=== PATIENT | male | born 1975 | race Caucasian/White ===

== ENCOUNTER → 2019-03-29 11:01 | Outpatient (BNVA) | payer OTHER, SELFPAY | PROVIDERS: Family Provider Nurse Practitioner; Visit Provider Orthopaedic Surgery | DX: Z98.890 Other specified postprocedural states (principal) | CPT/HCPCS: 73110 ==

== ENCOUNTER → 2019-05-09 11:47 | Outpatient (BNVA) | payer OTHER, SELFPAY | PROVIDERS: Family Provider Nurse Practitioner; Visit Provider Orthopaedic Surgery | DX: Z98.890 Other specified postprocedural states (principal) | CPT/HCPCS: 73110 ==

== ENCOUNTER 2020-06-04 10:21 | Outpatient (CLI) | payer OTHER, SELFPAY | END 2020-06-04 10:22 | disposition home or self-care (01) | LOC: SPT 10:22 | PROVIDERS: Family Provider Nurse Practitioner; Visit Provider Specialist | DX: Z46.89 Encounter for fitting and adjustment of other specified devices (principal); M25.532 Pain in left wrist; M25.512 Pain in left shoulder | CPT/HCPCS: 73030; L3908 ==

== ENCOUNTER → 2020-07-02 12:16 | Outpatient (BNVA) | payer OTHER, SELFPAY | PROVIDERS: Family Provider Nurse Practitioner; Visit Provider Psychiatry & Neurology Neurology | DX: M54.2 Cervicalgia (principal); M25.512 Pain in left shoulder; G56.02 Carpal tunnel syndrome, left upper limb; F17.210 Nicotine dependence, cigarettes, uncomplicated | CPT/HCPCS: 95886; 95908 ==

== ENCOUNTER → 2021-11-02 13:55 | Outpatient (BNVA) | payer OTHER, SELFPAY | PROVIDERS: Family Provider Nurse Practitioner; Visit Provider Orthopaedic Surgery | DX: M77.12 Lateral epicondylitis, left elbow (principal) | CPT/HCPCS: 99202 ==

== ENCOUNTER 2021-11-26 18:05 | Emergency (ER) | payer OTHER, SELFPAY ==
[2021-11-26 18:40] VITALS: BMI 38.5
--- NOTE | 2021-11-26 18:47 | ECG_ITS ---
[facility] Test Date: 2021-11-26 Pat Name: Quan Arreaga Department: Room: Gender: Male Coroner: : 1975 Requested By: Carlton Wright Order Number: [id number] Mendiola MD: Tej Johnson M.D. Measurements Intervals [place] Rate: 90 P: 19 DE: 120 QRS: -32 QRSD: 116 T: 35 QT: 342 QTc: 419 Interpretive Statements SINUS RHYTHM LEFT AXIS DEVIATION [QRS AXIS < -30] PATTERN CONSISTENT WITH PULMONARY DISEASE MODERATE INTRAVENTRICULAR CONDUCTION DELAY [110+ ms QRS DURATION] No previous ECG available for comparison Electronically Signed On 11-28-2021 13:24:12 CDT by Tej Johnson M.D. [id number]
--- NOTE | 2021-11-26 23:17 | CTR_ITS ---
PROCEDURE INFORMATION: Exam: CT Head Without Contrast Exam date and time: 11/27/2021 12:14 AM Age: 46 years old Clinical indication: Dizziness; Prior surgery; Surgery date: 6+ months; Surgery type: Tonsillectomy; Additional info: Dizzy TECHNIQUE: Imaging protocol: Computed tomography of the head without contrast. Radiation optimization: All CT scans at this facility use at least one of these dose optimization techniques: automated exposure control; mA and/or kV adjustment per patient size (includes targeted exams where dose is matched to clinical indication); or iterative reconstruction. COMPARISON: No relevant prior studies available. RADIATION DOSE METRICS: Total DLP (mGy-cm): 1121.78 FINDINGS: Brain: Normal. No hemorrhage. Unremarkable white matter. No mass effect. Cerebral ventricles: No ventriculomegaly. Paranasal sinuses: Mild left sphenoid sinus disease. Mild bilateral ethmoid sinus disease. Mastoid air cells: Visualized mastoid air cells are well aerated. Bones/joints: Unremarkable. No acute fracture. Soft tissues: Unremarkable. CT/CT head wo con* [id number] IMPRESSION: 1. Mild left sphenoid sinus disease. 2. Mild bilateral ethmoid sinus disease. No acute intracranial findings.
[2021-11-26 23:42] VITALS: BP 115/78; BP 120/72; BP 98/75; PULSE 75; PULSE 88; PULSE 94
[2021-11-26 23:44] VITALS: BP 120/72; PULSE 75; RESP 18; O2SAT 95
[2021-11-26 23:44] LABS: Basophils # 0.1 10^3/uL (0.0-0.1); Eosinophils # 0.4 10^3/uL (0.0-0.8); Eosinophils % 4.9 %; Hematocrit 45.8 % (42.0-52.0); Hemoglobin 15.7 g/dL (11.7-16.6); Lymphocytes # 3.8 10^3/uL (0.8-4.8); Lymphocytes % 47.3 %; Mean Corpuscular HGB Conc 34.3 g/dL (30.0-36.0); Mean Corpuscular Hemoglobin 31.7 pg (28.0-34.0); Mean Corpuscular Volume 92.3 fl (80-94); Mean Platelet Volume 10.3 fL (7.4-10.4); Monocytes # 0.9 10^3/uL (0.2-0.9); Monocytes % 11.5 %; Neutrophils # 2.84 10^3/uL (1.8-7.7); Neutrophils % 35.2 %; Nucleated Red Blood Cells % 0 %; Platelet Count 244 10^3/cmm (130-400); Red Blood Count 4.96 10^6/uL (4.1-5.3); Red Cell Distribution Width 11.4 % (12.1-15.1); White Blood Count 8.1 10^3/uL (4.0-10.0)
[2021-11-26] MEDS: sodium chloride 0.9% 1,000 ML 999 ML IV (23:57)
[2021-11-27 00:03] LABS: Alanine Aminotransferase 33 U/L (0-41); Albumin Level 4.2 g/dL (3.5-5.2); Alkaline Phosphatase 98 U/L (40-130); Anion Gap 14.8 (5-19); Aspartate Amino Transferase 23 U/L (0-40); Blood Urea Nitrogen 22 mg/dL (6-20); Calcium 9.7 mg/dL (8.5-10.5); Carbon Dioxide 28 mmol/L (22-29); Chloride 100 mmol/L (98-107); Globulin 3.1 g/dL (1.3-4.6); Glomerular Filtration Rate 80.4 mL/min (90-130); Glucose 97 mg/dL (65-115); Magnesium 2.1 mg/dL (1.7-2.3); Osmolality Calculated 291 mOsm/kg (285-295); Potassium 3.8 mmol/L (3.5-5.1); Sodium 139 mmol/L (136-145); Total Bilirubin 0.3 mg/dL (0.15-1.2); Total Protein 7.3 g/dL (6.6-8.7); Troponin T (5th) Once 6 ng/L (0-15)
[2021-11-27 00:21] LABS: Add Urine Microscopic? NO; Charge for UA Resulting for Rev
[2021-11-27 00:24] LABS: Protein Urine Neg (Negative); Urine Appearance Clear (CLEAR); Urine Color Yellow (Yellow); pH Urine 5 (5-7)
[2021-11-27 00:25] LABS: Bilirubin Urine 1+ (Negative); Blood Urine Neg (Negative); Glucose Urine UA Norm (Normal); Ketones Urine 1+ (Negative); Leukocyte Esterase Urine Negative (Negative); Nitrate Urine Negative (Negative); Urobilinogen Urine 1 mg/dL (Negative)
[2021-11-27] MEDS: sodium chloride 0.9% 1,000 ML 999 ML IV (00:45)
[2021-11-27 01:39] VITALS: BP 118/76; PULSE 74; RESP 20
[2021-11-27 01:48] VITALS: BP 118/66; PULSE 84; RESP 18
--- NOTE | 2021-11-27 05:34 | W.ED.DIZZY ---
HPI - Dizziness General: Chief Complaint: Dizziness Stated Complaint: dizziness Time Seen by Provider: 11/26/21 23:01 History of Present Illness: HPI Narrative: 46-year-old male presenting complaining of a year or so of dizziness and near syncopal type symptoms, especially with change in position is in getting up from sitting or lying. Symptoms are not vertiginous. He feels like he may pass out. He becomes dizzy. states he may get diaphoretic at times. He is lost some weight recently. No fever, no significant shortness of breath, no headache. No focal weakness or changes in sensation that is acute, although the patient does note some decreased sensation that is chronic to his entire left lower extremity. [facility] ED PFSH: Medical History (Updated 11/27/21 @ 01:38 by Dakota Nguyễn DO) Status post proximal row carpectomy of wrist Proximal row carpectomy right wrist and posterior interosseous neurectomy for partial denervation of right wrist DOS:02/07/19 by Family History Other Hypertension Denies family history of Diabetes CAD (coronary artery disease) Clotting disorder Dementia Hyperlipidemia Psychiatric illness Chronic kidney disease (CKD) Suicide Anesthesia complication Bleeding disorder Family history of premature coronary artery disease Lung disease Cancer Stroke Social History Smoking and tobacco status: current every day smoker Second hand smoke exposure: Yes Alcohol intake: never Course Vital Signs: Vital signs: Vital Signs Pulse Rate 84 11/27/21 01:48 Respiratory Rate 18 11/27/21 01:48 Blood Pressure 118/66 11/27/21 01:48 Pulse Oximetry 95 11/26/21 23:44 Oxygen Delivery Me thod 11/26/21 23:44 MDM - Dizziness Medical Decision Making This patient's systolic blood pressure dropped from 1 22-98 sitting to standing. This is positive for orthostasis. He is given 2 L of fluid here. He is feeling somewhat better. CBC is normal. BMP is essentially normal. No elevation in liver enzymes. His troponin is 6. Urine ketones are 1+. He is not acidotic. EKG shows a sinus rhythm with left axis deviation. There is intraventricular conduction delay, but no acute ST changes. Rate is 90. NM interval is normal. Head CT shows mild left sphenoid and bilateral ethmoid sinus disease. No acute intracranial findings. With no clear cause of the orthostasis, patient will be referred to cardiology. Outpatient ultrasound Dopplers of the carotids will be scheduled as well. Lab Data : 11/26/21 23:30 11/26/21 23:[address] 11/26/21 23:17 IMPRESSION: 1. Mild left sphenoid sinus disease. 2. Mild bilateral ethmoid sinus disease. No acute intracranial findings. Laboratory Results WBC 8.1 10^3/uL (4.0-10.0) 11/26/21 23:30 RBC 4.96 10^6/uL (4.1-5.3) 11/26/21 23: Hgb 15.7 g/dL (11.7-16.6) 11/26/21 23:30 Hct 45.8 % (42.0-52.0) 11/26/21 23:30 MCV 92.3 fl (80-94) 11/26/21 23: MCH 31.7 pg (28.0-34.0) 11/26/21 23:30 MCHC 34.3 g/dL (30.0-36.0) 11/26/21 23: RDW 11.4 % (12.1-15.1) L 11/26/21 23: Plt Count 244 10^3/cmm (130-400) 11/26/21 23:30 MPV 10.3 fL (7.4-10.4) 11/26/21 23:30 Neut % (Auto) 35.2 % 11/26/21 23:30 Lymph % (Auto) 47.3 % 11/26/21 23:30 Cannon % (Auto) 11.5 % 11/26/21 23:30 Eos % (Auto) 4.9 % 11/26/21 23:30 Baso % (Auto) 1.0 % 11/26/21 23: Neut # (Auto) 2.84 10^3/uL (1.8-7.7) 11/26/21 23:30 Lymph # (Auto) 3.8 10^3/uL (0.8-4.8) 11/26/21 23:30 Cannon # (Auto) 0.9 10^3/uL (0.2-0.9) 11/26/21 23:30 Eos # (Auto) 0.4 10^3/uL (0.0-0.8) 11/26/21 23:30 Baso # (Auto) 0.1 10^3/uL (0.0-0.1) 11/26/21 23:30 Nucleated RBC % (auto) 0 % 11/26/21 23:30 Nucleated RBCs # 0.0 /100WBC 11/26/21 23:30 Sodium 139 mmol/L (136-145) 11/26/21 23:30 Potassium 3.8 mmol/L (3.5-5.1) 11/26/21 23:30 Chloride 100 mmol/L (98-107) 11/26/21 23:30 Carbon Dioxide 28 mmol/L (22-29) 11/26/21 23:30 Anion Gap 14.8 (5-19) 11/26/21 23:30 BUN 22 mg/dL (6-20) H 11/26/21 23:30 Creatinine 1.0 mg/dL (0.7-1.2) 11/26/21 23:30 GFR Calculation 80.4 mL/min (90-130) L 11/26/21 23:30 Glucose 97 mg/dL (65-115) 11/26/21 23:30 Calculated Osmolality 291 mOsm/kg (285-295) 11/26/21 23:30 Calcium 9.7 mg/dL (8.5-10.5) 11/26/21 23:30 Magnesium 2.1 mg/dL (1.7-2.3) 11/26/21 23:30 Total Bilirubin 0.3 mg/dL (0.15-1.2) 11/26/21 23:30 AST 23 U/L (0-40) 11/26/21 23:30 ALT 33 U/L (0-41) 11/26/21 23:30 Alkaline Phosphatase 98 U/L (40-130) 11/26/21 23:30 Troponin T Gen 5 ng/L 6 ng/L (0-15) 11/26/21 23:30 Total Protein 7.3 g/dL (6.6-8.7) 11/26/21 23:30 Albumin 4.2 g/dL (3.5-5.2) 11/26/21 23:30 Globulin 3.1 g/dL (1.3-4.6) 11/26/21 23:30 Urine Color Yellow (Yellow) 11/27/21 00:15 Urine Appearance Clear (CLEAR) 11/27/21 00:15 Urine pH 5 (5-7) 11/27/21 00:15 Ur Specific [place] 1.030 (1.005-1.030) 11/27/21 00:15 Urine Protein Neg (Negative) 11/27/21 00:15 Urine Glucose (UA) Norm (Normal) 11/27/21 00:15 Urine Ketones 1+ (Negative) H 11/27/21 00:15 Urine Blood Neg (Negative) 11/27/21 00:15 Urine Nitrate Negative (Negative) 11/27/21 00:15 Urine Bilirubin 1+ (Negative) H 11/27/21 00:15 Urine Urobilinogen 1 mg/dL (Negative) H 11/27/21 00:15 Ur Leukocyte Esterase Negative (Negative) 11/27/21 00:15 Discharge Plan Discharge Patient Disposition: Home Clinical Impression: Orthostatic hypotension, Pre-syncope Condition: Stable Prescriptions: No Action (DME) cock up splint See Rx Instructions .Route .MEDSUPPLY Qty: 1 0RF Rx Instructions: As directed lisinopril 40 mg tablet 40 mg PO ONCE aspirin 81 mg tablet,delayed release (DR/EC) 81 mg PO ONCE hydrochlorothiazide 25 mg tablet 25 mg PO QAM cholecalciferol (vitamin D3) 1,000 unit capsule 1,000 unit PO ONCE atorvastatin 20 mg tablet 20 mg PO ONCE omega-3 fatty acids [Fish Oil Concentrate] 1,000 mg capsule 1,000 mg PO DAILY Discharge Orders: Discharge ED (Routine); Ordered 11/27/21 Ordered By: Dakota Nguyễn Referrals: Charline Dominguez FNP [Primary Care Provider] - Patient Instructions: Hypotension (ED), Near Syncope (ED) Activity Restrictions/Additional Instructions: Case management order has been placed for you to follow-up with cardiology. We have also ordered outpatient carotid ultrasound testing on you you should get a call this coming week in regards to both. Make sure you drink plenty of noncaffeinated clear fluids. Return for worsening episodes of dizziness, passing out or near passing out, chest discomfort, etc. despite adequate hydration. Coding Level of Care Code ED Lace Stripper for Miranda Austin
--- NOTE | 2021-11-29 15:27 | DCPLANNER ---
Addendum entered by Barbara Amaro 03/10/22 10:44: [facility] - patient did attend appointment Addendum entered by Barbara Amaro 11/30/21 08:58: Patient has a follow up appointment scheduled for Monday, February 14, 2022 at 1:[address] at [facility]. Clinic will call patient with appointment information. Original Note: merchandise manager had message to schedule a follow up appointment for patient with cardiology. merchandise manager sent patients information to the front office staff at [facility]. Patients information will be printed and reviewed. Clinic will call patient with appointment information. merchandise manager sent patients information to June with [facility], for the authorization process to be started.
== END 2021-11-27 01:45 | disposition home or self-care (01) ==
PROVIDERS: Emergency Provider Emergency Medicine; PCP Nurse Practitioner
DX: I95.1 Orthostatic hypotension (principal); Z79.82 Long term (current) use of aspirin; F17.210 Nicotine dependence, cigarettes, uncomplicated
CPT/HCPCS: 70450; 80053; 81003; 83735; 84484; 85025; 93005; 96360; 96361; 99285; J7030

== ENCOUNTER → 2022-02-28 10:07 | Outpatient (BNVA) | payer OTHER, SELFPAY | PROVIDERS: PCP Nurse Practitioner; Visit Provider Internal Medicine Cardiovascular Disease | DX: I95.1 Orthostatic hypotension (principal); I10 Essential (primary) hypertension; E78.5 Hyperlipidemia, unspecified; F17.210 Nicotine dependence, cigarettes, uncomplicated | CPT/HCPCS: 99204 ==

== ENCOUNTER 2022-04-01 10:52 | Outpatient (CLI) | payer OTHER, SELFPAY ==
--- NOTE | 2022-04-01 11:00 | USCV_ITS ---
Quan Arreaga Age: 46 Gender: M : 1975 Exam Date: 04/01/2022 11:06 Ordering Phys: Yodit Armstrong MD ([email or web address]) Technologist: Exam Location: [facility] [place] Indication: chest pain BP: 140 / 88 HR: 67 Rhythm: Sinus Technical Quality: MEASUREMENTS (Male / Female) Normal Values 2D ECHO LV Diastolic Diameter PLAX 4.5 cm 4.2 - 5.9 / 3.9 - 5.3 cm LV Systolic Diameter PLAX 2.7 cm IVS Diastolic Thickness 1.0 cm 0.6 - 1.0 / 0.6 - 0.9 cm IVS Systolic Thickness 1.6 cm LVPW Diastolic Thickness 1.1 cm 0.6 - 1.0 / 0.6 - 0.9 cm LVPW Systolic Thickness 1.5 cm LVOT Diameter 2.0 cm LV Ejection Fraction 2D Teich 71.0 % LV Ejection Fraction MOD 2C 42.6 % LV Ejection Fraction 2C AL 41.2 % LA Diameter 3.6 cm IVC Diameter 1.2 cm M-MODE Aortic Annulus Diameter 4.1 cm LA Ao Ratio MM 1.0 MV E Point Septal Separation 1.5 cm DOPPLER AV Peak Velocity 114.0 cm/s LVOT Peak Velocity 104.0 cm/s AV Area Cont Eq vti 2.8 cm squared AV Area Cont Eq pk 2.8 cm squared MV Area PHT 5.0 cm squared Mitral E to A Ratio 1.1 MV E' Velocity 39.5 cm/s Mitral E to MV E' Ratio 8.9 Mitral E to LV E' Lateral Ratio 8.1 Mitral E to LV E' Septal Ratio 9.9 TR Peak Velocity 163.7 cm/s TR Peak Gradient 10.7 mmHg TV Peak E Velocity 62.0 cm/s Right Atrial Pressure 3.0 mmHg Pulmonary Artery Systolic Pressu 13.7 mmHg PV Peak Velocity 70.0 cm/s RV Acceleration Time 0.1 s FINDINGS Left Ventricle Normal left ventricular size, systolic function and wall thickness, with no regional wall motion abnormalities. Left ventricular ejection fraction is estimated at 55 %. Normal diastolic function. Right Ventricle Normal right ventricular size and systolic function. RVSP could not be calculated due to incomplete tricuspid regurgitation velocity profile. Right Atrium Normal right atrial size. Left Atrium Normal left atrial size. Mitral Valve Structurally normal mitral valve. No mitral valve stenosis. Trace mitral valve regurgitation. Aortic Valve Structurally normal trileaflet aortic valve. No aortic valve stenosis. No aortic valve regurgitation. Tricuspid Valve Structurally normal tricuspid valve. No tricuspid valve stenosis. Trace tricuspid valve regurgitation. Pulmonic Valve Pulmonic valve not well visualized. Pericardium No pericardial effusion. Aorta Normal size aortic root and proximal ascending aorta. IVC Normal IVC dimension with >50% respiratory change of the inferior vena cava. CONCLUSIONS 1. Normal left ventricular size, systolic function and wall thickness, with no regional wall motion abnormalities. Left ventricular ejection fraction is estimated at 55 %. Normal diastolic function. 2. No significant valvular abnormality. 3. No prior similar studies to compare. Yodit Armstrong MD (Electronically Signed) Final Date: 11 April 2022 22:23 S
[2022-04-01] MEDS: perflutren protein-a microsphr 0.22 mg/mL SDV 3 mL IV (11:37)
== END 2022-04-01 10:53 | disposition home or self-care (01) ==
PROVIDERS: PCP Nurse Practitioner; Visit Provider Internal Medicine Cardiovascular Disease
DX: R06.02 Shortness of breath (principal); R55 Syncope and collapse; R07.9 Chest pain, unspecified
CPT/HCPCS: C8929; Q9956

== ENCOUNTER → 2022-06-15 14:36 | Outpatient (BNVA) | payer OTHER, SELFPAY | PROVIDERS: PCP Nurse Practitioner; Visit Provider Nurse Practitioner Family | DX: I95.1 Orthostatic hypotension (principal); I10 Essential (primary) hypertension; F17.210 Nicotine dependence, cigarettes, uncomplicated; Z79.82 Long term (current) use of aspirin | CPT/HCPCS: 99213 ==

== ENCOUNTER 2022-08-24 15:06 | Outpatient (CLI) | payer OTHER, SELFPAY ==
--- NOTE | 2022-08-24 15:17 | MR_ITS ---
WS: [id number] MRI LEFT SHOULDER HISTORY: L SHOULDER PAIN COMPARISON: Shoulder radiograph 06/04/2020 TECHNIQUE: Multiplanar sequences of the shoulder joint are submitted. Mild AC joint arthritis. Narrowing of the AC joint with mild thickening of the capsule. Small osteoph ytes. No significant subacromial impingement. No os acromion. Biceps tendon noted in the bicipital gr oove. No joint effusion. Humeral head is very slightly high riding. Mild narrowing of the glenohumeral join t. No rotator cuff tear is identified. Very slight increased T2 signal and thickening of the distal i nfraspinatus tendon. The remaining tendons are normal. Degenerative changes within the labrum. There is mild increased signal in the anterior superior labrum. Smudge-like increased T2 signal within the anterosuperior labrum is not seen on sequential imaging. Probably intrasubstance degeneration. MR/MR shoulder LT wo con* [id number] IMPRESSION: 1. Mild AC joint arthritis. 2. Mild distal infraspinatus tendinopathy. 3. Intrasubstance degeneration in the anterior superior labrum. Cannot confirm complete tear at this time.
== END 2022-08-24 15:07 | disposition home or self-care (01) ==
LOC: RAD 15:09
PROVIDERS: PCP Nurse Practitioner; Visit Provider Nurse Practitioner
DX: M19.012 Primary osteoarthritis, left shoulder (principal); M25.712 Osteophyte, left shoulder; M75.82 Other shoulder lesions, left shoulder
CPT/HCPCS: 73221

== ENCOUNTER → 2022-10-26 14:53 | Outpatient (BNVA) | payer OTHER, SELFPAY | PROVIDERS: PCP Nurse Practitioner; Referring Provider Nurse Practitioner; Visit Provider Specialist | DX: M77.8 Other enthesopathies, not elsewhere classified | CPT/HCPCS: 73030; 99214 ==

== ENCOUNTER 2023-01-12 15:22 | Outpatient (CLI) | payer OTHER, SELFPAY ==
--- NOTE | 2023-01-12 | MR_ITS ---
WS: [id number] MRI CERVICAL SPINE NONCONTRAST TECHNIQUE: Sagittal T1, T2 and STIR imaging. Axial T2, gradient, and fiesta imaging. CLINICAL INFORMATION: PAIN COMPARISON: None. FINDINGS: Straightening of the normal cervical lordosis. No high-grade central canal narrowing. Cord signal is normal. C2-C3: Mild facet arthropathy. Spinal canal and foramen are patent. C3-C4: Normal. C4-C5: Mild facet arthropathy. Mild LEFT bony foraminal narrowing. C5-C6: Disc osteophyte complex with endplate ridging. Slight effacement of the ventral thecal sac. Mo derate to severe LEFT bony foraminal narrowing. Mild RIGHT bony foraminal narrowing. Mild facet arthr opathy. C6-C7: Disc osteophyte complex with endplate ridging. Uncovertebral joint hypertrophy. Moderate to se vivi LEFT bony foraminal narrowing. Mild RIGHT bony foraminal narrowing. C7-T1: Mild LEFT bony foraminal narrowing. Spinal canal and RIGHT foramen are patent. Visualized brain stem structures: Normal. Prevertebral soft tissues: Normal. IMPRESSION: 1. Straightening of the normal cervical lordosis. Cord signal is normal. 2. Moderate to severe LEFT C5-C6 and C6-C7 bony foraminal narrowing. 3. Mild disc bulge and osteophytic ridging at C5-C6 and C6-C7.
== END 2023-01-12 15:23 | disposition home or self-care (01) ==
PROVIDERS: PCP Nurse Practitioner; Visit Provider Nurse Practitioner
DX: M50.222 Other cervical disc displacement at C5-C6 level (principal); M50.223 Other cervical disc displacement at C6-C7 level
CPT/HCPCS: 72141

== ENCOUNTER → 2023-01-30 14:33 | Outpatient (BNVA) | payer OTHER, SELFPAY | PROVIDERS: PCP Nurse Practitioner; Referring Provider Nurse Practitioner; Visit Provider Surgery | DX: Z12.11 Encounter for screening for malignant neoplasm of colon (principal) | CPT/HCPCS: 99202 ==

== ENCOUNTER → 2023-04-06 13:16 | Outpatient (BNVA) | payer OTHER, SELFPAY | PROVIDERS: PCP Nurse Practitioner; Visit Provider Internal Medicine Cardiovascular Disease | DX: E78.5 Hyperlipidemia, unspecified (principal); I10 Essential (primary) hypertension; Z87.891 Personal history of nicotine dependence | CPT/HCPCS: 99213 ==

== ENCOUNTER 2023-04-13 09:31 | Day surgery (SDC) | payer OTHER, SELFPAY ==
[2023-04-13 09:53] VITALS: BP 135/104; PULSE 98; RESP 16; TEMP 36.6; O2SAT 95; BMI 44.9
[2023-04-13] MEDS: sodium chloride 0.9% 1,000 ML 30 ML IV (10:07)
--- NOTE | 2023-04-13 10:10 | ANES.PREANE2 ---
Pre-Anesthetic Assessment Height/Weight: Height 1.88 m Weight 158.757 kg Temp Pulse Resp BP Pulse Ox O2 Del Method 97.8 F 98 16 135/104 95 Room Air 04/13/23 09:53 04/13/23 09:53 04/13/23 09:53 04/13/23 09:53 04/13/23 09:53 04/13/23 09:53 Preop Diagnosis: screening colonoscopy Operation Date: 04/13/23 10:30 Proposed Procedures p 82669 colon G0121 screen colon a risk Z12.11(Not Applicable) - Juancarlos Velez MD Familial anesthetic complications: none Was Beta Gavino taken within 24 hours: N/A Was Clonidine taken within 24 hours: N/A Last intake: Intake Last Liquid Date 04/12/23 Last Liquid Time 20:00 Last Solid Date 04/11/23 Last Solid Time 18:00 Social Tobacco 1 pack(s) per day 20 plus pack years stopped apr 2022 Exam alert, oriented x 3, clear to auscultation bilaterally and regular rate & rhythm Airway Submandibular: within normal limits Cervical ROM: within normal limits and Other (pinched nerve in neck with radiculopathy) Mallampati: Class II Dentition: chipped Comments: Comments: front tooth chipped. History/ROS No significant history except as noted Pulmonary Sleep Apnea and Shortness of Breath Has CPAP uses occ CV/HEM Hypertension None reported Hepatic None reported Metabolic Morbid Obesity Anesthetic Plan ASA status: 3 Anesthesia: Anesthesia Evaluation and MAC Medications/Allergies Home Medications Medication Instructions Recorded Confirmed Last Taken Type omega-3 fatty acids 1,000 mg 1,000 mg PO DAILY 07/02/20 04/13/23 04/12/23 History capsule (Fish Oil Concentrate) aspirin 81 mg tablet,delayed 81 mg PO DAILY 02/28/22 04/13/23 04/12/23 History release atorvastatin 20 mg tablet 20 mg PO DAILY 02/28/22 04/13/23 04/12/23 History cholecalciferol (vitamin D3) 25 1,000 unit PO DAILY 02/28/22 04/13/23 04/12/23 History mcg (1,000 unit) capsule lisinopril 40 mg tablet 40 mg PO DAILY 02/28/22 04/13/23 04/12/23 History amlodipine 5 mg tablet (Norvasc) 5 mg PO DAILY #30 tabs 04/06/23 04/13/23 Unknown Rx Allergies Allergy/AdvReac Type Severity Reaction Status Date / Time No Known Allergies Allergy Verified 04/06/23 13:22 Current Medications Generic Name Dose Route Start Last Admin Trade Name Sandra PRN Reason Stop Dose Admin Sodium Chloride 1,000 mls @ 30 mls/hr 04/13/23 09:45 04/13/23 10:07 Sodium Chloride 0.9% IV 30 mls/hr .Q24H PIPER Administration PFSH Anesthesia Medical History Hypertension Hyperlipidemia Status post proximal row carpectomy of wrist Proximal row carpectomy right wrist and posterior interosseous neurectomy for partial denervation of right wrist DOS:02/07/19 by Surgical History (Updated 01/30/23 @ 14:40 by Charis Harp, CT) S/P tonsillectomy Family History Mother Myocardial infarction Hypertension Father Myocardial infarction Hypertension Hyperlipidemia Brother Myocardial infarction Hypertension Family/Other Stroke Social History (Updated 01/30/23 @ 14:[address]) Smoking and tobacco/nicotine status: former use of tobacco/nicotine Second hand smoke exposure: Yes Alcohol intake: never Substance/Drug Use: never Data Anesthesia Cardiac Studies: Echocardiogram 04/01/22
--- NOTE | 2023-04-13 10:55 | P.HP_ITS ---
Same Day Surgery H&P Indication for Procedure/HPI DATE OF PROCEDURE: April 13, 2023 CHIEF COMPLAINT/INDICATIONFOR SURGICAL PROCEDURE: need for screening colonoscopy PREOP DIAGNOSIS: screening colonoscopy PLANNED PROCEDURE: Operation Date: 04/13/23 10:30 Proposed Procedures p 60028 colon G0121 screen colon a risk Z12.11(Not Applicable) - Juancarlos kamara MD Medications/Allergies* Home Medications Medication Instructions Recorded Confirmed Type omega-3 fatty acids 1,000 mg 1,000 mg PO DAILY 07/02/20 04/13/23 History capsule (Fish Oil Concentrate) aspirin 81 mg tablet,delayed 81 mg PO DAILY 02/28/22 04/13/23 History release atorvastatin 20 mg tablet 20 mg PO DAILY 02/28/22 04/13/23 History cholecalciferol (vitamin D3) 25 1,000 unit PO DAILY 02/28/22 04/13/23 History mcg (1,000 unit) capsule lisinopril 40 mg tablet 40 mg PO DAILY 02/28/22 04/13/23 History Allergies/Adverse Reactions Allergy/AdvReac Type Severity Reaction Status Date / Time No Known Allergies Allergy Verified 04/06/23 13:22 Current Medications: Generic Name Dose Route Start Last Admin Trade Name Freq PRN Reason Stop Dose Admin Sodium Chloride 1,000 mls @ 30 mls/hr 04/13/23 09:45 04/13/23 10:07 Sodium Chloride 0.9% IV 30 mls/hr .Q24H PIPER Administration Pertinent History/Comorbid Conditions* Medical History (Updated 10/29/22 @ 23:15 by Merced Lim MD) Hypertension Hyperlipidemia Status post proximal row carpectomy of wrist Proximal row carpectomy right wrist and posterior interosseous neurectomy for partial denervation of right wrist DOS:02/07/19 by Surgical History (Updated 02/28/22 @ 10:49 by Yodit Armstrong MD) S/P tonsillectomy Family History (Updated 02/28/22 @ 10:25 by Gege Read RN) Hyperlipidemia Father Myocardial infarction Mother Father Brother Hypertension Mother Father Brother Stroke Family/Other Social History Smoking and tobacco/nicotine status: former use of tobacco/nicotine Second hand smoke exposure: Yes Alcohol intake: never Substance/Drug Use: never Pertinent Exam Findings alert, oriented x 3 and clear to auscultation bilaterally Recommendations Surgery/Procedure today Coding Level of Care Code Acute Code for Chg Fwd
[2023-04-13 11:22] VITALS: BP 114/78; PULSE 82; RESP 18; TEMP 36.4; O2SAT 95
[2023-04-13 11:33] VITALS: BP 128/92; PULSE 77; RESP 18; O2SAT 97
[2023-04-13 11:42] VITALS: BP 133/68; PULSE 75; RESP 18; O2SAT 98
--- NOTE | 2023-04-13 15:46 | ANE.PACU2 ---
Inpatient post-anesthesia follow up: Airway intact: Yes Vital signs: Temperature 97.5 F Pulse Rate 75 Respiratory Rate 18 Blood Pressure 133/68 Pulse Oximetry 98 Oxygen Delivery Me thod Room Air Oxygen Flow Rate Fraction of Inspir ed Oxygen Hydration adequate: Yes Nausea and vomiting: No Pain level: 2 Mental status: Baseline
== END 2023-04-13 11:55 | disposition home or self-care (01) ==
PROVIDERS: PCP Nurse Practitioner; Visit Provider Surgery
PROC: 0DJD8ZZ Inspection of Lower Intestinal Tract, Via Natural or Artificial Opening Endoscopic (ICD-10-PCS; CPT 45378; principal; 2023-04-13 10:30)
DX: Z12.11 Encounter for screening for malignant neoplasm of colon (principal); Z79.82 Long term (current) use of aspirin; E78.5 Hyperlipidemia, unspecified; I10 Essential (primary) hypertension; Z87.891 Personal history of nicotine dependence; G47.30 Sleep apnea, unspecified; E66.01 Morbid (severe) obesity due to excess calories; Z68.41 Body mass index [BMI] 40.0-44.9, adult
CPT/HCPCS: 45378; J2704; J7030

== ENCOUNTER → 2024-02-22 15:54 | Outpatient (BNVA) | payer OTHER, SELFPAY | PROVIDERS: PCP Nurse Practitioner; Referring Provider Nurse Practitioner; Visit Provider Specialist | DX: G56.03 Carpal tunnel syndrome, bilateral upper limbs (principal) | CPT/HCPCS: 95910 ==

== ENCOUNTER → 2024-04-04 10:00 | Outpatient (BNVA) | payer OTHER, SELFPAY | PROVIDERS: PCP Nurse Practitioner; Visit Provider Nurse Practitioner Family | DX: E78.5 Hyperlipidemia, unspecified (principal); I10 Essential (primary) hypertension; Z87.891 Personal history of nicotine dependence | CPT/HCPCS: 99213 ==

== ENCOUNTER → 2024-05-06 16:07 | Outpatient (BNVA) | payer OTHER, SELFPAY | PROVIDERS: PCP Nurse Practitioner; Visit Provider Specialist | DX: Z01.818 Encounter for other preprocedural examination (principal); G56.03 Carpal tunnel syndrome, bilateral upper limbs; G56.02 Carpal tunnel syndrome, left upper limb | CPT/HCPCS: 73130; 99215 ==

== ENCOUNTER 2024-05-28 15:24 | Outpatient (CLI) | payer OTHER, SELFPAY ==
[2024-05-28 15:46] LABS: Bilirubin Urine Negative (Negative); Blood Urine Negative (Negative); Glucose Urine UA Negative (Normal); Ketones Urine Trace (Negative); Leukocyte Esterase Urine Negative (Negative); Nitrate Urine Negative (Negative); Protein Urine Negative (Negative); Specific Gravity, Urine 1.029 (1.005-1.030); Urine Appearance Clear (CLEAR); Urine Color Yellow (Yellow)
[2024-05-28 15:47] LABS: Basophils # 0.1 10^3/uL (0.0-0.1); Basophils % 0.9 %; Eosinophils # 0.3 10^3/uL (0.0-0.8); Eosinophils % 2.7 %; Hematocrit 43.9 % (37-53); Lymphocytes # 3.4 10^3/uL (0.8-4.8); Lymphocytes % 29.9 %; Mean Corpuscular HGB Conc 34.2 g/dL (30-55); Mean Corpuscular Hemoglobin 31.4 pg (27-33); Mean Corpuscular Volume 91.8 fl (82-101); Monocytes % 8.8 %; Neutrophils # 6.49 10^3/uL (1.8-7.7); Neutrophils % 57.4 %; Nucleated Red Blood Cells % 0 %; Platelet Count 256 10^3/cmm (157-399); Red Blood Count 4.78 10^6/uL (3.85-5.65); Red Cell Distribution Width 11.7 % (12.1-15.1)
[2024-05-28 15:51] LABS: Add Urine Microscopic? YES; Bacteria Urine None Seen /hpf; RBC Urine 0-2 /hpf (0-2); Squamous Epithelial Cell Urine 0-5 /hpf (0-5); WBC Urine 0-5 /hpf (0-5)
[2024-05-28 16:14] LABS: Alanine Aminotransferase 24 U/L (0-41); Albumin Level 4.6 g/dL (3.5-5.2); Alkaline Phosphatase 113 U/L (40-130); Anion Gap 15.9 (5-19); Aspartate Amino Transferase 21 U/L (0-40); Blood Urea Nitrogen 19 mg/dL (6-20); Calcium 9.7 mg/dL (8.5-10.5); Carbon Dioxide 23 mmol/L (22-29); Chloride 101 mmol/L (98-107); Globulin 3.3 g/dL (1.3-4.6); Glomerular Filtration Rate 120.4 mL/min (90-130); Glucose 98 mg/dL (65-115); Osmolality Calculated 284 mOsm/kg (285-295); Potassium 3.9 mmol/L (3.5-5.1); Sodium 136 mmol/L (136-145); Total Bilirubin 0.7 mg/dL (0.15-1.2); Total Protein 7.9 g/dL (6.6-8.7)
== END 2024-05-28 15:25 | disposition home or self-care (01) ==
LOC: LAB 15:25
PROVIDERS: PCP Nurse Practitioner; Visit Provider Specialist
DX: Z01.818 Encounter for other preprocedural examination (principal)
CPT/HCPCS: 36415; 80053; 81001; 85025

== ENCOUNTER 2024-06-06 10:53 | Day surgery (SDC) | payer OTHER, SELFPAY ==
[2024-06-06] VITALS (10 sets, daily range): BP systolic 102–134; BP diastolic 68–92; PULSE 55–80; RESP 12–18; TEMP 36.1–36.8; O2SAT 93–100; BMI 41.4
[2024-06-06] MEDS: sodium chloride 0.9% 1,000 ML 30 ML IV (11:27)
[2024-06-06] MEDS: CELEcoxib 200 mg Capsule 400 MG PO (11:28)
[2024-06-06] MEDS: acetaminophen 1,000 MG/100 ML PIGGYBACK 400 MG IV (11:28)
[2024-06-06] MEDS: gabapentin 300 mg Capsule PO (11:29)
--- NOTE | 2024-06-06 12:29 | P.HPUD_ITS ---
Surgery/Procedure H&P Update DATE OF PROCEDURE: June 06, 2024 DATE H&P PERFORMED: 06/04/24 H&P UPDATE INFORMATION: I have reviewed H&P completed within last 30 days, I have examined patient prior to procedure, No changes to prior documentation and H&P is in [facility] date indicated PLANNED PROCEDURE: Operation Date: 06/06/24 12:50 Proposed Procedures p Carpal Tunnel Release(Left) - Merced Lim MD Related Problem List Diagnoses (1) Carpal tunnel syndrome, left upper limb:
--- NOTE | 2024-06-06 13:28 | ANES.PREANE2 ---
Pre-Anesthetic Assessment Height/Weight: Height 1.88 m Weight 146.51 kg Temp Pulse Resp BP Pulse Ox O2 Del Method 97.2 F L 80 18 134/88 98 Room Air 06/06/24 11:21 06/06/24 11:21 06/06/24 11:21 06/06/24 11:21 06/06/24 11:21 06/06/24 11:21 Preop Diagnosis: Left carpal tunnel syndrome Operation Date: 06/06/24 12:50 Proposed Procedures p Carpal Tunnel Release(Left) - Merced Lim MD Familial anesthetic complications: none Was Beta Gavino taken within 24 hours: N/A Was Clonidine taken within 24 hours: N/A Last intake: Intake Last Liquid Date 06/05/24 Last Liquid Time 17:00 Last Solid Date 06/04/24 Last Solid Time 16:00 Social Tobacco and No alcohol 5 cigarettes pack(s) per day 20 pack years Exam alert, oriented x 3, clear to auscultation bilaterally and regular rate & rhythm Airway Cervical ROM: within normal limits Mallampati: Class II Dentition: full Pulmonary Sleep Apnea CV/HEM Hypertension None reported Hepatic None reported GI None reported Metabolic Hyperlipidemia and Morbid Obesity [facility] [place] None reported Neuropsych None reported Anesthetic Plan ASA status: 3 Anesthesia: General Risk of > 500 ml blood loss (7ml/kg in children): No Medications/Allergies Home Medications ?Medication ?Instructions ?Recorded ?Confirmed ?Last Taken ?Type omega-3 fatty acids 1,000 mg 1,000 mg PO DAILY 07/02/20 06/05/24 05/29/24 History capsule (Fish Oil Concentrate) aspirin 81 mg tablet,delayed 81 mg PO DAILY 02/28/22 06/05/24 05/29/24 History release atorvastatin 20 mg tablet 20 mg PO DAILY 02/28/22 06/05/24 06/05/24 History cholecalciferol (vitamin D3) 25 1,000 unit PO DAILY 02/28/22 06/05/24 06/05/24 History mcg (1,000 unit) capsule lisinopril 40 mg tablet 40 mg PO DAILY 02/28/22 06/05/24 06/05/24 History amlodipine 10 mg tablet 10 mg PO DAILY 06/05/24 06/05/24 06/05/24 History Allergies Allergy/AdvReac Type Severity Reaction Status Date / Time No Known Allergies Allergy Verified 06/06/24 11:04 Current Medications Generic Name Dose Route Start Last Admin Trade Name Sandra PRN Reason Stop Dose Admin Sodium Chloride 1,000 mls @ 30 mls/hr 06/06/24 11:15 06/06/24 11:27 Sodium Chloride 0.9% IV 06/07/24 11:14 30 mls/hr .Q24H PIPER Administration PFSH Anesthesia Medical History Hypertension Hyperlipidemia Status post proximal row carpectomy of wrist Proximal row carpectomy right wrist and posterior interosseous neurectomy for partial denervation of right wrist DOS:02/07/19 by Surgical History S/P tonsillectomy Family History Mother Myocardial infarction Hypertension Father Myocardial infarction Hypertension Hyperlipidemia Brother Myocardial infarction Hypertension Family/Other Stroke Social History Smoking and tobacco/nicotine status: current every day tobacco/nicotine user Second hand smoke exposure: Yes Alcohol intake: never Substance/Drug Use: never Data Anesthesia Cardiac Studies: Echocardiogram 04/01/22
[2024-06-06] MEDS: ceFAZolin 2,000 mg SDV 2000 MG IVP (13:36)
[2024-06-06] MEDS: BUPivacaine 0.5% INJ 30 mL XX (14:11)
--- NOTE | 2024-06-06 14:59 | P.OP_ITS ---
Operative Report Date of procedure: June 06, 2024 Pre-op diagnosis: Left carpal tunnel syndrome Post-op diagnosis: Left carpal tunnel syndrome Post-op findings: Severe compression across the carpal canal with purplish discoloration and thickened fibrous tissue Procedure done: Left carpal tunnel release Implants: None Specimens removed/disposition: None Pathology: None Surgeon: Merced Lim MD Building Maintenance Custodian: None Estimated blood loss (mL): 2 Tourniquet time (min): 21 (At 250 mmHg) IV fluids (mL): 500 Urine output (mL): 0 Complications: None Findings: Severe carpal tunnel compression with purplish discoloration of the median nerve and fibrous tissue within the canal Condition: stable Disposition: PACU (Then return to same-day surgery for discharge to home) Brief History: This 48-year-old gentleman presented to the office complaining of symptoms consistent with carpal tunnel syndrome. He had nerve conduction studies which demonstrated severe entrapment of both the right and left median nerves at the wrist with normal ulnar nerves. After discussion in the office, the patient wished to proceed with operative intervention in the form of carpal tunnel release. Risks and complications of the surgery were discussed with him. Consents were signed in the office and questions were answered. The patient was seen preoperatively in the holding area and further questions were answered. Procedure: The patient was brought to the operating theater. The patient had general anesthesia per LMA, which was well-tolerated. The tourniquet was elevated to 250 mmHg for a total tourniquet time of 21 minutes. The patient was also given Ancef 2 g preoperatively. The arm was then prepped and draped with DuraPrep in usual fashion with the arm draped free. A surgical pause was performed. At the time, the surgical pause, we confirmed the site and side of surgery. We also confirmed the patient's identity, appropriate and timely administration of preoperative antibiotics and preoperative surgical markings. An incision was then made along the thenar crease. The incision crossed the wrist joint in a curvilinear fashion. Dissection continued through skin and soft tissues using a scalpel. The palmaris longus was identified along with the transverse carpal ligament. Each of these was released carefully to avoid injury to the median nerve. We were able to dissect gently into the carpal canal which was noted to be quite tight with significant compression across the median nerve. The nerve was visualized and was an hourglass shape. The canal was subsequently palpated to assure there was no bony encroachment upon the canal. There was a quite thickened fibrous tissue within the canal, and this was opened longitudinally as well. The canal was then palpated distally and proximally to assure that my small finger was passed easily without impingement. Finding this to be so, attention was directed to closure. The wound was irrigated with ropivacaine plain. It was then closed with 3-0 nylon in an interrupted mattress fashion. Sterile dressing was then placed consisting of Dermabond, OpSite, fluffed fluffs, sterile soft roll, and an Adi wrap. The tourniquet was released after 21 minutes. There were no complications. There were no specimens. The procedure was well tolerated. Plan is the patient will be discharged home. Related Problem List Diagnoses (1) Carpal tunnel syndrome, left upper limb:
--- NOTE | 2024-06-06 16:10 | ANE.PACU2 ---
Inpatient post-anesthesia follow up: Airway intact: Yes Vital signs: Temperature 97 F Pulse Rate 55 Respiratory Rate 18 Blood Pressure 111/76 Pulse Oximetry 96 Oxygen Delivery Me thod Room Air Oxygen Flow Rate Fraction of Inspir ed Oxygen Hydration adequate: Yes Nausea and vomiting: No Pain level: 1 Mental status: Baseline
== END 2024-06-06 16:10 | disposition home or self-care (01) ==
PROVIDERS: PCP Nurse Practitioner; Visit Provider Specialist
PROC: (CPT 64721; principal; 2024-06-06 12:40)
DX: G56.02 Carpal tunnel syndrome, left upper limb (principal); I10 Essential (primary) hypertension; E78.5 Hyperlipidemia, unspecified; G47.33 Obstructive sleep apnea (adult) (pediatric); F17.200 Nicotine dependence, unspecified, uncomplicated; Z79.82 Long term (current) use of aspirin; E66.01 Morbid (severe) obesity due to excess calories; Z68.41 Body mass index [BMI] 40.0-44.9, adult
CPT/HCPCS: 64721; J0131; J0690; J2250; J2704; J3010; J3490; J7030; J9999

== ENCOUNTER → 2024-06-25 14:16 | Outpatient (BNVA) | payer OTHER, SELFPAY | PROVIDERS: PCP Nurse Practitioner; Visit Provider Nurse Practitioner | DX: Z98.890 Other specified postprocedural states (principal) | CPT/HCPCS: 99024 ==

== ENCOUNTER → 2024-07-15 14:47 | Outpatient (BNVA) | payer OTHER, SELFPAY | PROVIDERS: PCP Nurse Practitioner; Visit Provider Nurse Practitioner | DX: Z98.890 Other specified postprocedural states (principal) | CPT/HCPCS: 99024 ==

== ENCOUNTER → 2024-10-01 12:28 | Outpatient (BNVA) | payer OTHER, SELFPAY | PROVIDERS: PCP Nurse Practitioner; Visit Provider Internal Medicine Cardiovascular Disease | DX: I10 Essential (primary) hypertension (principal); F17.200 Nicotine dependence, unspecified, uncomplicated | CPT/HCPCS: 99214 ==

== ENCOUNTER 2025-02-11 15:39 | Outpatient (CLI) | payer OTHER, SELFPAY ==
--- NOTE | 2025-02-11 15:54 | MR_ITS ---
WS: [id number] MRI HEAD WITH CONTRAST TECHNIQUE: Sagittal T1, T2 axial, T2 axial FLAIR, axial susceptibility weighted imaging, axial diffusion weighted images, and coronal T2 images were obtained. Pre and post-T1 axial and post T1 coronal images. ADC and FSPGR images. CLINICAL INFORMATION: worsening tremors COMPARISON: CT 2021 FINDINGS: No evidence of restricted diffusion to suggest acute ischemia. Mild patchy supratentorial white matter changes. No significant parenchymal volume loss. Normal posterior fossa. Normal vascular flow voids at the skull base. No extra- axial fluid collections. Paranasal sinusitis with fluid in the LEFT sphenoid sinus and ethmoid air cells. Mastoid air cells are well aerated. Normal posterior nasopharynx. No hemosiderin on susceptibility-weighted images. Normal optic chiasm and pituitary infundibulum. No abnormal gadolinium enhancement. MR/MR head wo/w con [id number] IMPRESSION: 1. No evidence of restricted diffusion to suggest acute ischemia. 2. Mild patchy supratentorial white matter changes nonspecific in a patient of this age but can be seen with hypertension, diabetes, and migraine headaches. No significant parenchymal volume loss. 3. No abnormal gadolinium enhancement. 4. No hemosiderin. 5. No other acute findings. 6. Paranasal sinusitis worse in the ethmoid air cells and LEFT sphenoid sinus with fluid and secretions.
[2025-02-11] MEDS: gadobenate dimeglumine 20 mL vial IV (16:42)
== END 2025-02-11 15:40 | disposition home or self-care (01) ==
LOC: RAD 15:40
PROVIDERS: PCP Nurse Practitioner; Visit Provider Nurse Practitioner
DX: Z01.89 Encounter for other specified special examinations (principal); R90.82 White matter disease, unspecified; J01.30 Acute sphenoidal sinusitis, unspecified; I10 Essential (primary) hypertension; E11.9 Type 2 diabetes mellitus without complications; R51.9 Headache, unspecified
CPT/HCPCS: 70553

== ENCOUNTER 2025-03-09 13:36 | Emergency (ER) | payer OTHER, SELFPAY ==
[2025-03-09 13:39] VITALS: BP 155/105; PULSE 74; RESP 18; TEMP 36.6; O2SAT 98; BMI 43.0
--- NOTE | 2025-03-09 13:43 | XRR_ITS ---
PROCEDURE INFORMATION: Exam: XR Left Hand Exam date and time: 03/09/2025 2:14 PM Age: 49 years old Clinical indication: Pain; Finger(s); Prior Surgery; Surgery Date: 6+ months; Surgery Type: LT CARPAL TUNNEL; Additional Info: LACERATION TO LATERAL LT thumb just below level of nailbed after bow accident; TECHNIQUE: Imaging protocol: Radiologic exam of the left hand. Views: 3 or more views. COMPARISON: No relevant prior studies available. FINDINGS: Bones/joints: There is a focal fracture of the distal tuft of the 1st distal phalanx. Phalangeal structures are otherwise intact. Metacarpal structures are intact. Carpal alignment is normal. Joint spaces are well preserved. No intra-articular calcifications are appreciated. Visualized distal radius and ulna are intact. Soft tissues: Soft tissue bandaging is present overlying the thumb. Tissue loss is seen adjacent to the thenar side of the thumb pad. XR/XR hand LT min 3V* [id number] IMPRESSION: There is a focal fracture of the distal tuft of the 1st distal phalanx. Open fracture.
--- OUTSIDE RECORDS SUMMARY | 2025-03-09 13:43 | XMS_ITS | Patient Health Record ---
Author Organization [facility] Address [address] [place] [address] Care Team Providers Care Chefs Name Role Phone AlbertoCharline WALTON Primary Care Provid er Unavailable Francisco Caballero Unavailable [phone] Reason For Referral No Information Medications Medication SIG (Take, Route, Fr equency, Duration) Notes Start Date End Date Status Lisinopril Active Fish Oil Active Vitamin D3 Active Mark Low Dose Activ e Atorvastatin Calcium Active Social History Tobacco Use: Social History Observation Description Date Details (start date - stop date) Current Smoker NA - NA Social History Drugs/Alcohol: Social Info Question Answer Notes Alcohol Screen (Audit-C) Did you have a drink containing alcohol in the past year? Yes How often did you have a drink containing alcohol in the past year? 2 to 3 times a week (3 points) Points 3 Interpretation Negative Drugs Have you used drugs other than those for medical reasons in the past 12 months? No Tobacco Use: Social Info Question Answer Notes xTobacco Use/Smoking Are you a current smoker Additional Findings: Tobacco User e-Cigarette Problems Problem Type SNOMED Code ICD Code Onset Dates Problem Status W/U Status Risk Notes Problem Skin sensation disturbance (98268886) Numbness and tingling in left hand (R20.2) Active confirmed Problem Pain in left arm (142149648) Left arm pain (M79.602) Active confirmed Problem Degeneration of cervical intervertebral disc (25259548) Degeneration of cervical intervertebral disc (M50.30) Active confirmed Problem Displacement of cervical intervertebral disc without myelopathy (64099850) Disc displacement, cervical (M50.20) Active confirmed Plan Of Treatment No Information Insurance Providers Payer Name Payer Address Payer Phone Subscriber Number Group Number Insured Name Patient Relationship to Insured Coverage Start Date Coverage End Date [employer] [address] [place] [phone] [id number] Quan Arreaga Self - patient is the insured Medical (General) History Medical History History ICD Code Chicken Pox Heart Disease Arthritis HBP Surgical History Surgery Date(Month/Year) Right Wrist 03/08
--- NOTE | 2025-03-09 14:30 | W.ED.WOUNDLC ---
HPI - Wound/Laceration General: Chief Complaint: Wound/Laceration Stated Complaint: left thumb injury Time Seen by Provider: 03/09/25 14:17 History of Present Illness: Patient is 49-year-old gentleman with history of hypertension that was deer hunting, pulled his crossbow back, to change attention, and the bow caught his left thumb at the tip, lateral side, causing laceration, loss of skin, loss of fingernail. [facility] This occurred just prior to arrival. Associated symptoms: Denies chills, fever(s), nausea or vomiting Related Data Home Medications ?Medication ?Instructions ?Recorded ?Confirmed omega-3 fatty acids 1,000 mg 1,000 mg PO DAILY 07/02/20 10/01/24 capsule (Fish Oil Concentrate) aspirin 81 mg tablet,delayed 81 mg PO DAILY 02/28/22 10/01/24 release atorvastatin 20 mg tablet 20 mg PO DAILY 02/28/22 10/01/24 cholecalciferol (vitamin D3) 25 1,000 unit PO DAILY 02/28/22 10/01/24 mcg (1,000 unit) capsule lisinopril 40 mg tablet 40 mg PO DAILY 02/28/22 10/01/24 amlodipine 10 mg tablet 10 mg PO DAILY 06/05/24 10/01/24 Previous Rx's ?Medication ?Instructions ?Recorded cephalexin 500 mg capsule 500 mg PO QID 10 days #40 caps 03/09/25 methocarbamol 750 mg tablet 750 mg PO Q8H PRN muscle spasm #30 03/09/25 tabs Allergies Allergy/AdvReac Type Severity Reaction Status Date / Time No Known Allergies Allergy Verified 10/01/24 12:45 Review of Systems General: Reports: 10 or more systems reviewed and unremarkable except in HPI and below Const: Denies: fever(s) or chills Card: Reports: lightheadedness and dyspnea on exertion; Denies: chest pain, palpitations, irregular heart rhythm, swelling of feet/ankles, pre-syncope or leg pain with exertion Resp: Denies: dyspnea or productive cough GI: Denies: abdominal pain, nausea or vomiting Musc: Reports: extremity pain, extremity swelling, joint pain, joint swelling, joint redness, joint stiffness and limited range of motion Neuro: Reports: dizziness PFSH ED PFSH: Medical History (Updated 03/09/25 @ 18:50 by HUNTER Ortiz) Hypertension Hyperlipidemia Status post proximal row carpectomy of wrist Proximal row carpectomy right wrist and posterior interosseous neurectomy for partial denervation of right wrist DOS:02/07/19 by Surgical History S/P carpal tunnel release Date of procedure: June 06, 2024 Pre-op diagnosis: Left carpal tunnel syndrome Procedure done: Left carpal tunnel release Surgeon: Merced Lim MD S/P tonsillectomy Family History Mother Myocardial infarction Hypertension Father Myocardial infarction Hypertension Hyperlipidemia Brother Myocardial infarction Hypertension Family/Other Stroke Social History Smoking and tobacco/nicotine status: current every day tobacco/nicotine user Second hand smoke exposure: Yes Alcohol intake: never Substance/Drug Use: never Physical Exam Const: COMMON NORMALS: no acute distress, average body habitus, patient oriented x3, no limitations, alert and well nourished GENERAL APPEARANCE: cooperative ORIENTATION/CONSCIOUSNESS: Yes awake, Yes oriented to person, Yes oriented to place and Yes oriented to time HENMT: COMMON NORMALS: normocephalic and atraumatic HEAD & SCALP: normocephalic and atraumatic Chest: COMMONS NORMALS: normal inspection of the chest and normal palpation of entire chest wall Resp: COMMON NORMALS: normal respiratory effort, No retractions, No use of accessory muscles and clear to auscultation bilaterally AUSCULTATION: clear to auscultation bilaterally Cardio: COMMON NORMALS: regular rate and regular rhythm RATE: regular rate RHYTHM: regular rhythm GI: COMMON NORMALS: Normal to inspection, nondistended, normoactive bowel sounds present, Soft to palpation, non-tender and No hepatosplenomegaly present PALPATION: Yes Soft to palpation and Yes No hepatosplenomegaly present Extremity: LEFT UPPER EXTREMITY: Yes hand & digits Left hand and digits: Yes inspection (laceration), Yes palpation (pain), Yes ROM (intact), Yes neurovascular exam (intact) and Yes other (Flexion extension intact) OTHER: No tendon or nerve injury noted. He had a large open area to his lateral distal thigh and a half his fingernail. His fingernail was utilized to secure the top of his finger as well as to other points to sew, followed by wet to dry. Neuro: COMMON NORMALS: patient oriented x3 SENSORIUM/ORIENTATION: Yes alert, Yes oriented to person, Yes oriented to place and Yes oriented to time SPEECH: speech normal Psych: ATTITUDE: Yes engaged ACTIVITY/MOTOR BEHAVIOR: Yes appropriate eye contact ATTENTION/CONCENTRATION: Yes attention grossly intact MEMORY/COGNITION: Yes memory grossly intact Skin: COMMON NORMALS: no rashes or lesions noted, turgor normal and no jaundice GENERAL SKIN EXAM: no rashes or lesions noted and turgor normal Procedures Laceration Laceration 1: Site: hand (left thumb) Side (If applicable): left Size (cm): 4 Description: flap, irregular and contaminated Depth: involves muscle layer Local Anesthetic: lidocaine 1% Amount of anesthesia used (mL): 14 Pre-repair: wound explored, irrigated extensively and wound margins revised Skin layer closed with: nylon Size (cm): 3-0 Number of sutures: 3 Technique: simple, interrupted Course Vital Signs: Vital signs: Vital Signs Temperature 97.8 F 03/09/25 13:39 Pulse Rate 74 03/09/25 13:39 Respiratory Rate 18 03/09/25 13:39 Blood Pressure 155/105 03/09/25 13:39 Pulse Oximetry 99 03/09/25 16:33 Oxygen Delivery Me thod Room Air 03/09/25 16:33 MDM - Wound/Laceration Medical Decision Making Patient is a 49-year-old gentleman that ran a crossbow through his left finger on accident. His thumbnail was in half, however the distal portion was utilized to secure the finger with a stitch. As well, the 3 sutures that were placed were large bore, to suture the nail downward, and provide wound care. Xeroform, followed by sterile water gauze, followed by nonadherent dressing/Alethea Montalvo. Patient is to follow-up with orthopedics. Recommended 10 to 14 days to remove sutures so the wound may heal. I did discuss with patient's he is at high risk for losing the tip of his finger. He does have an open fracture with his distal tuft of the first distal phalanx noted. He was given Ancef. He is going to be on a full course of antibiotics. Medical Records I reviewed the patient's medical records. Lab Data Radiology Impressions Hand X-Ray 03/09/25 13:43 IMPRESSION: There is a focal fracture of the distal tuft of the 1st distal phalanx. Open fracture. All radiology interpretation(s) finalized by discharge Discharge Plan Discharge Patient Disposition: Home Clinical Impression: Laceration, Open fracture of tuft of distal phalanx of left thumb Condition: Stable Prescriptions: New cephalexin 500 mg capsule 500 mg PO QID 10 Days Qty: 40 0RF methocarbamol 750 mg tablet 750 mg PO Q8H PRN (Reason: muscle spasm) Qty: 30 0RF No Action aspirin 81 mg tablet,delayed release (DR/EC) 81 mg PO DAILY atorvastatin 20 mg tablet 20 mg PO DAILY cholecalciferol (vitamin D3) 25 mcg (1,000 unit) capsule 1,000 unit PO DAILY lisinopril 40 mg tablet 40 mg PO DAILY omega-3 fatty acids [Fish Oil Concentrate] 1,000 mg capsule 1,000 mg PO DAILY amlodipine 10 mg Tablet 10 mg PO DAILY Discharge Orders: Discharge ED (Routine); Ordered 03/09/25 Ordered By: Coni Vickers Referrals: Charline Dominguez FNP [Primary Care Provider, Nurse Practitioner] Discharge Diet: Usual diet Discharge Activity: Resume usual activity Patient Instructions: Laceration (ED), Patient Portal & Lukasz Instructions Activity Restrictions/Additional Instructions: - Wound care: Xeroform, sterile water gauze over the top, Kerlix, Coban - sutures: You have 3. As we discussed. We took the nail to help Chester the stitch. - Remove sutures in 10 to 14 days. - Antibiotics: Full course of antibiotics is at the pharmacy. Take as directed. Since you are on antibiotics, remember a probiotic or active culture yogurt - Pain: You will be given pain medication to take home. Muscle relaxers will be at the pharmacy. - Call your doctor for follow-up on this finger. As discussed, this is a open fracture and needs to be followed. Thank you for choosing [facility] for your healthcare needs today. You have been screened and evaluated and felt safe for discharge. Health conditions do change or evolve sometimes and as such it is important that you follow up with your Primary Doctor to be re checked, 3-5 days is a general good time frame for follow up. You are always welcome to return to the ED for re assessment if your symptoms are worsening or you have new concerns Print Language: Georgian Coding Level of Care Code ED Exhaust Emissions Automotive Technician for Miranda Austin
[2025-03-09 16:33] VITALS: O2SAT 99
[2025-03-09] MEDS: HYDROcodone-acetaminophen 5-325 mg Tablet 1 TAB PO (17:22)
[2025-03-09] MEDS: HYDROcodone-acetaminophen 10-325 mg Tablet 2 TAB PO (17:24)
== END 2025-03-09 17:31 | disposition home or self-care (01) ==
PROVIDERS: Emergency Provider Physician Assistant; PCP Nurse Practitioner
DX: S62.522A Displaced fracture of distal phalanx of left thumb, initial encounter for closed fracture (principal); S61.012A Laceration without foreign body of left thumb without damage to nail, initial encounter; Z79.82 Long term (current) use of aspirin; I10 Essential (primary) hypertension; X58.XXXA Exposure to other specified factors, initial encounter
CPT/HCPCS: 12042; 73130; 96372; 99284; J0690; J9999

== ENCOUNTER → 2025-03-11 14:25 | Outpatient (BNVA) | payer OTHER, SELFPAY | PROVIDERS: PCP Nurse Practitioner; Visit Provider Student in an Organized Health Care Education/Training Program | DX: S62.522B Displaced fracture of distal phalanx of left thumb, initial encounter for open fracture (principal); W23.0XXA Caught, crushed, jammed, or pinched between moving objects, initial encounter | CPT/HCPCS: 73130; 99204 ==